=== PATIENT | female | born 1945 | race Caucasian/White ===

== ENCOUNTER 2018-10-23 12:10 | Day surgery (SDC) | payer OTHER ==
[2018-10-22 15:26] VITALS: BMI 27.1
[2018-10-23 14:41] VITALS: TEMP 98.2
[2018-10-23 16:27] VITALS: BP 154/74; PULSE 88
--- NOTE | 2018-10-26 20:55 | PATH ---
Surgical Pathology Report Patient Name: ELIGIO DURAN [facility]. Rec. #: [id number] /Age/Gender: 1945 (Age: 73) / F Account: [id number] Location: ASU-ENDOSCOPY Taken: 10/23/2018 Received: 10/24/2018 Reported: 10/26/2018 Physicians: Delvis Valdes D.O. Specimen(s) Received A: ANTRUM POLYPS B: STOMACH BODY POLYPS C: ANGULARIS AND BODY Clinical History Rectal bleeding Postoperative diagnosis: Antral polyps, hiatal hernia, Schatzki's ring, diverticulosis, hemorrhoids, fair prep Final Diagnosis A. STOMACH, ANTRUM, POLYPS, BIOPSY: POLYPOID GASTRIC ANTRAL MUCOSA WITH MODERATE CHRONIC FOCAL ACTIVE GASTRITIS, FOCAL DILATED GLANDS, AND MILD FOVEOLAR HYPERPLASIA. IMMUNOHISTOCHEMICAL STAIN FOR H. PYLORI IS POSITIVE (RARE). IMMUNOHISTOCHEMICAL STAIN FOR CHROMOGRANIN HIGHLIGHTS RARE ENTEROCHROMAFFIN CELL-LIKE (ECL) CELLS. SEE COMMENT. B. STOMACH, BODY, POLYPS, BIOPSY: POLYPOID GASTRIC BODY MUCOSA WITH MODERATE TO SEVERE CHRONIC ACTIVE GASTRITIS. IMMUNOHISTOCHEMICAL STAIN FOR H. PYLORI IS POSITIVE (RARE). IMMUNOHISTOCHEMICAL STAIN FOR CHROMOGRANIN [place] ENTEROCHROMAFFIN CELL-LIKE (ECL) CELLS. SEE COMMENT. C. STOMACH, ANGULARIS AND BODY, BIOPSY: GASTRIC BODY MUCOSA WITH MODERATE TO SEVERE CHRONIC ACTIVE GASTRITIS. IMMUNOHISTOCHEMICAL STAIN FOR H. PYLORI IS POSITIVE (RARE). Comment: Features diagnostic of carcinoid tumor are not identified. Suggest clinical and endoscopic correlation Electronically Signed Mally Moore M.D. Gross Description A. Received in formalin, labeled "polyps in antrum" are 5 uribe, irregular portions of soft tissue ranging from 0.1-0.5 cm. in greatest dimension. The specimens are submitted in toto in one cassette. B. Received in formalin, labeled "biopsy polyps body of stomach" are 5 uribe, irregular portions of soft tissue ranging from 0.1-0.3 cm. in greatest dimension. The specimens are submitted in toto in one cassette. C. Received in formalin, labeled "biopsy angularis and body" are 3 uribe, irregular portions of soft tissue ranging from 0.2-0.5 cm. in greatest dimension. The specimens are submitted in toto in one cassette. /10/24/2018 saudi10/24/2018
== END 2018-10-23 16:27 | disposition home or self-care (01) ==
LOC: JASU-ENDO 12:10
PROVIDERS: ATTEND Internal Medicine Gastroenterology
PROC: 0DJD8ZZ Inspection of Lower Intestinal Tract, Via Natural or Artificial Opening Endoscopic (ICD-10-PCS; principal; 2018-10-23 13:00)
DX: D64.9 Anemia, unspecified (principal); K57.30 Diverticulosis of large intestine without perforation or abscess without bleeding; K64.8 Other hemorrhoids
CPT/HCPCS: 88305-TC; 88341-TC; 88342-TC

== ENCOUNTER 2019-03-01 11:21 | Emergency (ER) | payer OTHER ==
[2019-03-01 11:44] VITALS: BMI 23.8
--- NOTE | 2019-03-01 12:37 | PDOC ---
History of Present Illness - General Chief Complaint: Pain Stated Complaint: Pain Time Seen by Provider: 03/01/19 11:40 - History of Present Illness Initial Comments: 73 year old female with PMH of HTN, Chronic AFib (on eliquis), GERD, diverticulosis,and chronic pain presenting with abdominal pain, fever, and diarrhea for the past day. She also was just sen at her PCP's office where she apparently complained of myalgias, night sweats, and dry mouth. She was given loperamide yesterday by her son which helped her with the diarrhea. She has had surgical history of cholecystectomy. 03/01/19 12:32 Past History - Past Medical History Allergies/Adverse Reactions: Allergies Allergy/AdvReac Type Severity Reaction Status Date / Time pollen extracts AdvReac Intermediate Verified 03/01/19 13:21 POLLEN AdvReac Intermediate Uncoded 03/01/19 11:38 Home Medications: Ambulatory Orders Atorvastatin Ca [Lipitor] 20 mg PO HS 10/22/18 Dexlansoprazole [Dexilant] 60 mg PO DAILY 10/22/18 Digoxin [Lanoxin -] 0.125 mg PO DAILY 10/22/18 Diltiazem HCl [Diltiazem 24Hr ER] 360 mg PO DAILY 10/22/18 Docusate Sodium [Colace] 100 mg PO PRN 10/22/18 Hydrochlorothiazide [Hctz -] 12.5 mg PO DAILY 10/22/[address] [place] [Atrovent Hfa] 12.9 gm IH PRN 10/22/18 Loratadine [Claritin -] 10 mg PO DAILY 10/22/18 Magnesium 400 mg PO DAILY 10/22/18 Polyethylene Glycol 3350 [Miralax 119 gm Btl -] 17 gm PO DAILY 10/22/18 Asthma: Yes Cardiac Disorders: Yes (AFIB) COPD: Yes (PULMONARY EMPHYSEMA) HTN: Yes Hypercholesterolemia: Yes - Surgical History Abdominal Surgery: Yes Cholecystectomy: Yes (LAP) Neurologic Surgery: Yes (LUMBAR SPINE SURGERY) - Immunization History Immunization Up to Date: Yes - Psycho Social/Smoking Cessation Hx Smoking History: Never smoked Have you smoked in the past 12 months: No Hx Alcohol Use: No Drug/Substance Use Hx: No Substance Use Type: None Review of Systems - Review of Systems Constitutional: Yes: Chills, Diaphoresis. No: Fever HEENTM: No: Eye Pain, Blurred Vision, Tearing Respiratory: Yes: Cough. No: Shortness of Breath, Wheezing Cardiac (ROS): No: Chest Pain, Irregular Heart Rate ABD/GI: Yes: Nausea. No: Constipated, Diarrhea, Vomiting : No: Burning, Dysuria, Discharge Musculoskeletal: Yes: Muscle Pain. No: Back Pain, Joint Pain, Muscle Weakness Integumentary: No: Erythema, Flushing, Lesions Neurological: No: Headache, Numbness, Paresthesia Psychiatric: No: Anxiety, Depression Hematologic/Lymphatic: No: Anemia, Blood Clots, Easy Bleeding *Physical Exam - Vital Signs Last Vital Signs Temp Pulse Resp BP Pulse Ox 100.1 F H 80 18 135/71 99 03/01/19 12:22 03/01/19 11:38 03/01/19 11:38 03/01/19 11:38 03/01/19 11:38 - Physical Exam General Appearance: Yes: Nourished, Appropriately Dressed. No: Apparent Distress HEENT: positive: EOMI, JESSEE, Normal ENT Inspection, Normal Voice Neck: positive: Trachea midline, Normal Thyroid, Supple. negative: Tender, Rigid Respiratory/Chest: positive: Lungs Clear, Normal Breath Sounds. negative: Chest Tender, Respiratory Distress, Accessory Muscle Use Cardiovascular: positive: Regular Rhythm, Regular Rate Gastrointestinal/Abdominal: positive: Normal Bowel Sounds, Flat, Soft. negative : Tender Lymphatic: negative: Adenopathy, Tenderness Musculoskeletal: positive: Normal Inspection. negative: CVA Tenderness, Decreased Range of Motion Extremity: positive: Normal Capillary Refill, Normal Inspection, Normal Range of Motion. negative: Tender Integumentary: positive: Normal Color, Dry, Warm Neurologic: positive: Fully Oriented, Alert, Normal Mood/Affect, Normal Response , Motor Strength 5/5 ED Treatment Course - LABORATORY CBC & Chemistry Diagram: 03/01/19 12:25 03/01/19 12:25 - RADIOLOGY Radiology Studies Ordered: Category Date Time Status ABDOMEN CT WITH CONTRAST* [CT] Stat CT Scan 03/01/19 12:24 Ordered Medical Decision Making - Medical Decision Making 73 year old female with multiple complaints including myalgias, abdominal pain, and diarrhea. Labs unrevealing including negative lactic acid and negative UA. VS remained stable throughout admission and patient improved with zofran, NS 1 L , and Tylenol. EKG demonstrating rate 71, without obvious p waves, WRS 82, QTc 434, with normal axis and overall demonstrating for afib with rate control.. Abdominal CT and influenza negative so patient sent home with Tylenol and return precautions. 03/01/19 16:21 Discharge - Discharge Information Problems reviewed: Yes Clinical Impression/Diagnosis: Cough Fever Qualifiers: Fever type: unspecified Qualified Code(s): R50.9 - Fever, unspecified Condition: Stable Disposition: HOME - Admission No - Follow up/Referral Referrals: Mally Slater MD [Primary Care Provider] - - Patient Discharge Instructions Patient Printed Discharge Instructions: DI for Viral Upper Respiratory Infection -- Adult Additional Instructions: Use tylenol segn sea necesario para las fiebres o josh corporales cada 4 horas. Consulte a mathis mdico de atencin primaria dentro de jw semana. Regrese al servicio de urgencias si tiene sntomas nuevos o que empeoran. Print Language: DANISH - Post Discharge Activity
[2019-03-01] MEDS ORDERED: ACETAMINOPHEN 1000 MG/100 ML VIAL (NON FORMULARY) IVPB ONE (12:38)
[2019-03-01 13:04] LABS: BASO % 0.4 % (0-2.0); EOS % 2.1 % (0-4.5); HEMATOCRIT 40.5 % (32.4-45.2); HEMOGLOBIN 13.5 GM/dL (10.7-15.3); LYMPH % 18.9 % (8-40); MCH 30.8 pg (25.7-33.7); MCHC 33.3 g/dl (32.0-36.0); MEAN CELL VOLUME 92.6 fl (80-96); MEAN PLT VOLUME 9.6 fl (7.5-11.1); MONO % 12.8 % (3.8-10.2); NEUT % 65.8 % (42.8-82.8); PLATELET COUNT 233 K/MM3 (134-434); RBC 4.37 M/mm3 (3.60-5.2); RDW 12.6 % (11.6-15.6); WHITE BLOOD COUNT 4.7 K/mm3 (4.0-10.0)
[2019-03-01 13:13] LABS: INR 1.18 (0.83-1.09)
[2019-03-01] MEDS ORDERED: ONDANSETRON 4 MG/2 ML VIAL IVPUSH ONE (13:22)
[2019-03-01] MEDS ORDERED: SODIUM CHLORIDE 0.9% 1000 ML INFUS.BAG IV ONE (13:22)
[2019-03-01] MEDS ORDERED: ONDANSETRON 4 MG/2 ML VIAL ONE (13:26)
[2019-03-01 13:28] LABS: ALBUMIN 3.6 g/dl (3.4-5.0); BILIRUBIN,TOTAL 0.7 mg/dL (0.2-1); BLOOD UREA NITROGEN 10.9 mg/dL (7-18); CALCIUM 8.9 mg/dL (8.5-10.1); CREATININE 0.7 mg/dL (0.55-1.3); POTASSIUM 3.4 mmol/L (3.5-5.1); TOT PROT 7.2 g/dl (6.4-8.2)
--- NOTE | 2019-03-01 15:23 | PDOC ---
Attending Attestation - Resident Resident Name: Jose J Alvarado - ED Attending Attestation I have performed the following: I have examined & evaluated the patient, The case was reviewed & discussed with the resident, I agree w/resident's findings & plan, Exceptions are as noted - HPI HPI: 03/01/19 16:03 73 years old past medical history significant hypertension A. fib on Eliquis GERD diverticulosis chronic pain presents with subjective fever abdominal discomfort diarrhea no travel no sick contacts no recent antibiotics pain is crampy comes and goes diarrhea is nonbloody nonmucoid - Physicial Exam PE: 03/01/19 16:03 Vitals: Triage Vital signs reviewed General Appearance: No acute distress, well nourished well developed, Head: Atraumatic, Chest Wall: Nontender Cardiac: Regular rate and rhythym, no murmurs, no rubs, no gallops, Lungs: Clear to auscultation bilateral, good air movement bilaterally, Abdomen: Soft, non distended, normal bowel sounds, mild diffuse abdominal tenderness to palpation Extremities: Full range of motion to all extremities, no cyanosis, clubbing, or edema Skin: Warm and dry, no rashes or lesions, no rash, no petechiae Psych: Normal mood, normal affect - Medical Decision Making 03/01/19 16:04 Well-appearing mild abdominal discomfort on exam given age and comorbidities will obtain CT abdomen pelvis treat with IV fluids and IV Tylenol observe and reassess Reevaluation no evidence of colitis on CAT scan no fever no significantly elevated white blood cell count Patient feels much better after fluids and IV Tylenol history and examination and CAT scan imaging with no definitive pathology noted is most consistent with a viral diarrheal illness at this time patient stable for conservative management and outpatient follow-up Findings, need for follow-up and strict return instructions discussed with patient.
[2019-03-01 16:41] VITALS: BP 153/81; PULSE 78; TEMP 98.3
[2019-03-01 17:27] LABS: URINE APPEARANCE CLEAR; URINE BILIRUBIN NEGATIVE (NEGATIVE); URINE COLOR YELLOW; URINE GLUCOSE (UA) NEGATIVE (NEGATIVE); URINE KETONE NEGATIVE (NEGATIVE)
[2019-03-01 17:28] LABS: URINE LEUK ESTERASE NEGATIVE (NEGATIVE); URINE NITRITE NEGATIVE (NEGATIVE); URINE PROTEIN NEGATIVE (NEGATIVE); URINE UROBILINOGEN 0.2 mg/dL (0.2-1.0)
--- NOTE | 2019-03-03 20:27 | EKG ---
Test Reason : Blood Pressure : / mmHG Vent. Rate : 071 BPM Atrial Rate : 227 BPM P-R Int : 000 ms QRS Dur : 082 ms QT Int : 400 ms P-R-T Axes : 000 -15 -30 degrees QTc Int : 434 ms POOR DATA QUALITY, INTERPRETATION MAY BE ADVERSELY AFFECTED ATRIAL FIBRILLATION ABNORMAL ECG NO PREVIOUS ECGS AVAILABLE Confirmed by ANDREW CALLES MD ([id number]) on 03/03/2019 8:27:16 PM Referred By: Confirmed By:ANDREW CALLES MD
== END 2019-03-01 16:52 | disposition home or self-care (01) ==
LOC: JER 11:21
PROC: 3E033NZ Introduction of Analgesics, Hypnotics, Sedatives into Peripheral Vein, Percutaneous Approach (ICD-10-PCS; principal; 2019-03-01)
PROC: 3E033GC Introduction of Other Therapeutic Substance into Peripheral Vein, Percutaneous Approach (ICD-10-PCS; 2019-03-01)
DX: R50.9 Fever, unspecified (principal); R05 Cough; Z91.09 Other allergy status, other than to drugs and biological substances; I10 Essential (primary) hypertension; I48.91 Unspecified atrial fibrillation; E78.00 Pure hypercholesterolemia, unspecified; J43.8 Other emphysema
CPT/HCPCS: 36415; 74177-TC; 80053; 81003; 82150; 83605; 83690; 85025; 85610; 87086; 87186; 87804; 93005; 93010; 96374; 96375; 99284-25; J0131; J7030

== ENCOUNTER 2024-06-28 11:12 | Observation (INO) | payer OTHER ==
[2024-06-28 11:50] VITALS: BMI 29.2
[2024-06-28] MEDS ORDERED: ACETAMINOPHEN INJECTION 100 ML ONE (12:53)
[2024-06-28] MEDS: ACETAMINOPHEN 1000 MG/100 ML BAG IVPB ONE (12:56)
[2024-06-28 13:19] LABS: BASO % 0.5 % (0-2.0); EOS % 0.8 % (0-4.5); HEMATOCRIT 39.8 % (32.4-45.2); HEMOGLOBIN 13.3 GM/dL (10.7-15.3); LYMPH % 10.1 % (8-40); MCH 31.2 pg (25.7-33.7); MCHC 33.4 g/dl (32.0-36.0); MEAN CELL VOLUME 93.4 fl (80-96); MEAN PLT VOLUME 8.5 fl (7.5-11.1); NEUT % 78.6 % (42.8-82.8); PLATELET COUNT 297 10^3/uL (134-434); RBC 4.26 M/mm3 (3.60-5.2); WHITE BLOOD COUNT 5.6 K/mm3 (4.0-10.0)
[2024-06-28 13:25] LABS: INR 0.98 (0.83-1.09); PROTHROMBIN TIME (PATIENT) 10.8 SEC (9.7-13.0)
[2024-06-28 13:40] LABS: POTASSIUM 3.9 mmol/L (3.5-5.1)
[2024-06-28 13:42] LABS: BLOOD UREA NITROGEN 27.9 mg/dL (7-18); CALCIUM 9.6 mg/dL (8.5-10.1)
[2024-06-28 13:44] LABS: ALBUMIN 3.8 g/dl (3.4-5.0)
[2024-06-28 13:46] LABS: CREATININE 0.7 mg/dL (0.55-1.3)
[2024-06-28 13:48] LABS: BILIRUBIN,TOTAL 0.6 mg/dL (0.2-1); TOT PROT 6.8 g/dl (6.4-8.2)
[2024-06-28] MEDS: ACETAMINOPHEN 325 MG TABLET (FP) PO PRN (20:03)
[2024-06-28] MEDS ORDERED: hydrALAZINE HCL 20 MG/ML VIAL IVPUSH PRN (20:16)
[2024-06-28] MEDS ORDERED: PATIENT'S OWN MEDICATION (NON-FORMULARY) (Ipratropium Bromide [Atrovent Hfa] 12.9 GM Hfa.A IH SCH (20:30)
[2024-06-28] MEDS: ATORVASTATIN CA 20 MG TABLET (FP) PO SCH (21:28)
[2024-06-28] MEDS: INSULIN ASPART SLIDING SCALE (NOVOLOG) 1 VIAL SQ SCH (21:28)
[2024-06-28] MEDS: APIXABAN 2.5 MG TABLET PO SCH (21:28)
[2024-06-28] MEDS: LATANOPROST 0.005% OPHTH SOLN 2.5ML BOTTLE OU SCH (21:35)
[2024-06-28] MEDS ORDERED: ATORVASTATIN CA 20 MG TABLET (FP) PO SCH (22:00)
[2024-06-28] MEDS: LOSARTAN POTASSIUM 50 MG TABLET PO SCH (22:27)
[2024-06-29 07:27] LABS: HEMATOCRIT 41.7 % (32.4-45.2); HEMOGLOBIN 13.7 GM/dL (10.7-15.3); MCH 31.2 pg (25.7-33.7); MCHC 32.8 g/dl (32.0-36.0); MEAN CELL VOLUME 95.3 fl (80-96); MEAN PLT VOLUME 8.4 fl (7.5-11.1); PLATELET COUNT 274 10^3/uL (134-434); RBC 4.37 M/mm3 (3.60-5.2); RDW 12.5 % (11.6-15.6); WHITE BLOOD COUNT 5.2 K/mm3 (4.0-10.0)
[2024-06-29 07:43] LABS: POTASSIUM 4.1 mmol/L (3.5-5.1)
[2024-06-29 07:45] LABS: CALCIUM 9.1 mg/dL (8.5-10.1); MAGNESIUM 1.9 mg/dL (1.8-2.4)
[2024-06-29 07:46] LABS: BLOOD UREA NITROGEN 18.5 mg/dL (7-18)
[2024-06-29 07:49] LABS: CREATININE 0.7 mg/dL (0.55-1.3)
[2024-06-29] MEDS ORDERED: LOSARTAN POTASSIUM 50 MG TABLET PO SCH (10:00)
[2024-06-29] MEDS ORDERED: ENOXAPARIN NA (PORCINE) 40 MG/0.4 ML DISP.SYRIN SQ SCH (10:00)
[2024-06-29] MEDS: MECLIZINE HCL 12.5 MG TABLET PO PRN (10:48)
[2024-06-29] MEDS: HYDROCHLOROTHIAZIDE 25 MG TABLET (FP) PO SCH (14:21)
[2024-06-30 07:51] LABS: HEMATOCRIT 39.3 % (32.4-45.2); HEMOGLOBIN 13.2 GM/dL (10.7-15.3); MCH 31.8 pg (25.7-33.7); MCHC 33.5 g/dl (32.0-36.0); MEAN CELL VOLUME 94.9 fl (80-96); PLATELET COUNT 279 10^3/uL (134-434); RBC 4.14 M/mm3 (3.60-5.2); RDW 12.6 % (11.6-15.6); WHITE BLOOD COUNT 5.7 K/mm3 (4.0-10.0)
[2024-06-30 08:01] LABS: ALBUMIN 3.6 g/dl (3.4-5.0); BLOOD UREA NITROGEN 21.6 mg/dL (7-18)
[2024-06-30 08:04] LABS: CREATININE 0.7 mg/dL (0.55-1.3)
[2024-06-30 08:06] LABS: BILIRUBIN,TOTAL 0.7 mg/dL (0.2-1); TOT PROT 6.3 g/dl (6.4-8.2)
[2024-06-30] MEDS: DOCUSATE SODIUM 100 MG CAPSULE (FP) PO SCH (14:00)
[2024-06-30] MEDS: POLYETHYLENE GLYCOL (HEALTHYLAX) 3350 17 GM PACKET PO SCH (14:00)
[2024-06-30 21:58] VITALS: RESP 18
[2024-07-01 06:28] VITALS: TEMP 98.4
[2024-07-01 12:53] VITALS: BP 136/76; PULSE 82
== END 2024-07-01 13:44 | disposition home health service (06) ==
LOC: JER 11:12 → JERBED 17:14 → J4W 19:29
PROVIDERS: ADMIT Student in an Organized Health Care Education/Training Program; ATTEND Student in an Organized Health Care Education/Training Program
DX: I48.91 Unspecified atrial fibrillation (principal); I10 Essential (primary) hypertension; E78.5 Hyperlipidemia, unspecified; K21.9 Gastro-esophageal reflux disease without esophagitis; Z79.01 Long term (current) use of anticoagulants; J43.9 Emphysema, unspecified
CPT/HCPCS: 36415; 71045-TC-FY; 71275-TC; 74174-TC; 80048; 80053; 80061; 82962; 83036; 83735; 83880; 84439; 84443; 84484; 85025; 85027; 85610; 85730; 86850; 86900; 86901; 93005; 93010; 93306-TC; 97116-GP; 97162-GP; 99285-25; G0378; J0131